=== PATIENT | male | born 1950 | race Caucasian/White ===

== ENCOUNTER → 2024-12-03 10:09 | Outpatient (REF) | payer OTHER, SELFPAY | LOC: RAD 10:09 | PROVIDERS: ATTENDING PHYSICIAN Family Medicine | DX: E05.90 Thyrotoxicosis, unspecified without thyrotoxic crisis or storm (principal); E04.1 Nontoxic single thyroid nodule | CPT/HCPCS: 76536 ==

== ENCOUNTER → 2025-01-19 08:28 | Outpatient (REF) | payer OTHER, SELFPAY ==
[2025-01-19 08:49] VITALS: BP 189/85; BP_SYST 95
== END ==
LOC: RADI 08:28
PROVIDERS: ATTENDING PHYSICIAN Otolaryngology
DX: E04.2 Nontoxic multinodular goiter (principal)
CPT/HCPCS: 10005; 10006; 88173

== ENCOUNTER → 2025-01-28 09:04 | Outpatient (REF) | payer OTHER, SELFPAY | LOC: RAD 09:04 | PROVIDERS: ATTENDING PHYSICIAN Otolaryngology; FAMILY PHYSICIAN Family Medicine | DX: R13.12 Dysphagia, oropharyngeal phase (principal) | CPT/HCPCS: 74221 ==

== ENCOUNTER → 2025-02-17 08:38 | Outpatient (REF) | payer OTHER, SELFPAY | LOC: RST 08:38 | PROVIDERS: ATTENDING PHYSICIAN Otolaryngology; FAMILY PHYSICIAN Family Medicine | DX: R13.12 Dysphagia, oropharyngeal phase (principal) | CPT/HCPCS: 74230; 92611 ==